=== PATIENT | female | born 1980 ===

== ENCOUNTER → 2025-01-07 | Outpatient (CLI) | payer BC ==
[2025-01-09 14:18] LABS: CALPROTECTIN,FECAL 455 ug/g (<=49)
== END | disposition home or self-care (01) ==
LOC: LAB 08:00 → LAB SHORT 08:00
PROVIDERS: Physician Assistant Medical
DX: K51.919 Ulcerative colitis, unspecified with unspecified complications (principal)
CPT/HCPCS: 83993

== ENCOUNTER → 2025-01-07 | Outpatient (CLI) | payer BC ==
[2025-01-07 13:39] LABS: Ferritin, Serum 4.0 ng/mL (8-252); Total Iron Binding Capacity 593.0 ug/dL (250-450)
== END | disposition home or self-care (01) ==
LOC: LAB 12:16 → LAB SHORT 12:16
PROVIDERS: Physician Assistant Medical
DX: K51.919 Ulcerative colitis, unspecified with unspecified complications (principal)
CPT/HCPCS: 36415; 82728; 83540; 83550; 86140